=== PATIENT | female | born 1990 | race Caucasian/White ===

== ENCOUNTER 2023-02-20 22:27 | Emergency (ER) | payer OTHER ==
[~2023-02-20 22:27] MED LIST: BACTRIM DS1 TAB OR; CIPRO XR500 MG PO; CIPROFLOXACN500 MG PO; LORTAB 5 OR; LORTAB 7.57.5 MG PO; NO MEDS; SMZ-TMP DS1 TAB PO
[2023-02-20 23:07] VITALS: BP 120/81
[2023-02-20 23:15] VITALS: BP 120/76
[2023-02-20 23:30] VITALS: BP 120/74
[2023-02-20 23:45] VITALS: BP 111/79
[2023-02-21] VITALS (20 sets, daily range): BP systolic 93–135; BP diastolic 64–93
[2023-02-21 00:13] LABS: URINE BLOOD DIPSTICK LARGE (NEGATIVE); URINE COLOR YELLOW; URINE GLUCOSE - DIPSTICK NEGATIVE (NEGATIVE); URINE KETONE TRACE mg/dL (NEGATIVE); URINE LEUK ESTERASE NEGATIVE (NEGATIVE); URINE PROTEIN - DIPSTICK >=300 mg/dL (NEG-TRACE); URINE SPECIFIC GRAVITY >=1.030; URINE UROBILINOGEN - DIPSTICK 0.2 E.U./dL (0.2)
[2023-02-21 00:15] LABS: BASO% 0.7 % (0-3); EOS% 6.3 % (0-8); HEMATOCRIT 44.3 % (37.0-47.0); HEMOGLOBIN 14.4 g/dl (12.0-16.0); IMMATURE GRANULOCYTES 0.3 % (0.0-5.0); MEAN CELL VOLUME 92.9 fL CALC (80.0-100.0); MEAN CORPUSCULAR HGB 30.2 pG CALC (26.0-32.0); MEAN CORPUSCULAR HGB CONC 32.5 g/dL CAL (32.0-36.0); MONO% 8.6 % (2-13); NEUT# 4.57 thou/uL (2.00-7.15); NEUT% 47.1 % (42-76); RED BLOOD COUNT 4.77 mill/uL (4.20-5.60); RED CELL DISTRI WIDTH 12.3 % (11.5-15.5); URINE BILIRUBIN - DIPSTICK SEE COMMNET (NEGATIVE); URINE NITRITE - DIPSTICK NEGATIVE (Negative)
[2023-02-21 00:22] LABS: URINE BACTERIA MODERATE hpf; URINE MUCUS FEW hpf (NONE-FEW); URINE RBC 50-100 RBC/hpf (0-5); URINE SQUAMOUS EPITHELIAL CELL FEW EPI/hpf (0-FEW)
[2023-02-21 00:40] LABS: AMYLASE 73 u/l (30-110); BUN 13 mg/dL (7-17); BUN/CREATININE RATIO 13 (12-20 (CALC)); CARBON DIOXIDE 25 mmol/l (22-30); CHLORIDE 107 mmol/l (95-108); GFR FOR AFR.AMER. > 60 ML/MIN (>=60 (CALC)); GFR OTHER RACES > 60 ML/MIN (>=60 (CALC)); LIPASE 37 u/l (23-300); POTASSIUM 3.5 mmol/l (3.5-5.1); SGOT/AST 30 u/l (14-36)
[2023-02-21 00:41] LABS: ALBUMIN 4.6 g/dL (3.2-5.0); ALKALINE PHOSPHATASE 70 u/l (38-126); ANION GAP 15 (6-22 (CALC)); BILIRUBIN, TOTAL 1.3 mg/dL (0.02-1.3); SODIUM 143 mmol/l (137-146); TOTAL PROTEIN 7.9 g/dL (6.3-8.2)
[2023-02-21] MEDS ORDERED: ONDANSETRON4 MG PO (02:53)
[2023-02-21] MEDS ORDERED: LORTAB 1010 MG PO (02:53)
[2023-02-21] MEDS ORDERED: TAMSULOSIN0.4 MG PO (02:53)
== END 2023-02-21 08:04 | disposition home or self-care (01) ==
LOC: ED 22:27
PROVIDERS: Emergency Medicine
DX: N13.2 Hydronephrosis with renal and ureteral calculous obstruction (principal)
CPT/HCPCS: Q9967

== ENCOUNTER 2023-06-23 14:01 | Emergency (ER) | payer OTHER ==
[~2023-06-23] VITALS: Ht 157.5 cm; Wt 72.0 kg
[2023-06-23] VITALS (20 sets, daily range): BP systolic 102–122; BP diastolic 66–79
[~2023-06-23 14:01] MED LIST changes: +LORTAB 1010 MG PO; +ONDANSETRON4 MG PO; +TAMSULOSIN0.4 MG PO
[2023-06-23 14:31] LABS: BASO% 0.7 % (0-3); EOS% 11.1 % (0-8); HEMATOCRIT 39.7 % (37.0-47.0); IMMATURE GRANULOCYTES 0.1 % (0.0-5.0); LYMPH% 34.6 % (15-41); MEAN CELL VOLUME 93.2 fL CALC (80.0-100.0); MEAN CORPUSCULAR HGB 30.5 pG CALC (26.0-32.0); MEAN CORPUSCULAR HGB CONC 32.7 g/dL CAL (32.0-36.0); MONO% 8.9 % (2-13); NEUT# 3.04 thou/uL (2.00-7.15); NEUT% 44.6 % (42-76); RED BLOOD COUNT 4.26 mill/uL (4.20-5.60); RED CELL DISTRI WIDTH 12.7 % (11.5-15.5)
[2023-06-23 14:49] LABS: ALBUMIN 4.1 g/dL (3.2-5.0); ALKALINE PHOSPHATASE 48 u/l (38-126); AMYLASE 65 u/l (30-110); ANION GAP 15 (6-22 (CALC)); BUN 10 mg/dL (7-17); BUN/CREATININE RATIO 15 (12-20 (CALC)); CARBON DIOXIDE 24 mmol/l (22-30); CHLORIDE 105 mmol/l (95-108); CREATININE 0.7 mg/dL (0.5-1.0); GFR FOR AFR.AMER. > 60 ML/MIN (>=60 (CALC)); GFR OTHER RACES > 60 ML/MIN (>=60 (CALC)); LIPASE 49 u/l (23-300); POTASSIUM 3.6 mmol/l (3.5-5.1); SGOT/AST 21 u/l (14-36); SODIUM 139 mmol/l (137-146)
[2023-06-23 14:50] LABS: BILIRUBIN, TOTAL 0.6 mg/dL (0.02-1.3)
[2023-06-23 14:59] LABS: URINE BILIRUBIN - DIPSTICK Negative (NEGATIVE); URINE BLOOD DIPSTICK Negative (NEGATIVE); URINE COLOR Yellow; URINE GLUCOSE - DIPSTICK Negative (NEGATIVE); URINE KETONE Negative (NEGATIVE); URINE LEUK ESTERASE Negative (NEGATIVE); URINE NITRITE - DIPSTICK Negative (Negative); URINE PROTEIN - DIPSTICK Negative (NEG-TRACE); URINE UROBILINOGEN - DIPSTICK 0.2 E.U./dL (0.2)
[2023-06-23] MEDS ORDERED: MEDDOSEPAK PO (18:14)
[2023-06-23] MEDS ORDERED: METHOCARBAMOL500 MG PO (18:14)
[2023-06-23] MEDS ORDERED: NAPROXEN500 MG PO (18:14)
== END 2023-06-23 18:30 | disposition home or self-care (01) ==
LOC: ED 14:01
PROVIDERS: Nurse Practitioner
DX: R07.89 Other chest pain (principal); Z72.0 Tobacco use
CPT/HCPCS: Q9967